=== PATIENT | male | born 1975 | race Hispanic/Latino ===

== ENCOUNTER 2018-05-15 17:02 | Emergency (ER) | payer OTHER ==
[2018-05-15 17:37] VITALS: BP 125/98
--- NOTE | 2018-05-15 17:39 | Emergency Department Report ---
Blank Doc - Documentation Documentation: 43 y o male presents with a work bark stuck in his right index finger happened today while playing with his dog no bleeding PLAN: xray ordered reevalute take out stick if not obstructed tetanus booster antibiotics cipro/clinda
--- NOTE | 2018-05-15 18:37 | XRay Report ---
FINAL REPORT PROCEDURE: XR FINGER(S) 2+V RT TECHNIQUE: Right finger, two views HISTORY: foreign object in finger COMPARISON: No prior studies are available for comparison. FINDINGS: There is a linear 2.5 centimeter foreign body in the volar soft tissues of the distal 2nd finger. No underlying fracture or joint dislocation is seen. IMPRESSION: Foreign body is in the volar soft tissues of the distal 2nd finger, with no osseous involvement ident ified
[2018-05-15] MEDS ORDERED: BOOSTRIX IM ONE ×2 (18:48→18:51)
--- NOTE | 2018-05-15 18:52 | Emergency Department Report ---
HPI - General Chief Complaint: Extremity Injury, Upper Time Seen by Provider: 05/15/18 17:34 - HPI HPI: 43 y o male presents with a work bark stuck in his right index finger happened today while playing with his dog. Patient states that he had stick and was playing fetch with his dog when he accidentally had some of the strands of the bark puncture his in right index finger. Patient states his tetanus is not up-to-date. Patient denies any bleeding at the site. ED Past Medical Hx - Social History Smoking Status: Never Smoker Substance Use Type: Alcohol - Medications Home Medications: Home Medications Medication Instructions Recorded Confirmed Last Taken Type Ciprofloxacin HCl [Ciprofloxacin 500 mg PO BID #14 tablet 05/15/18 Unknown Rx TAB] Clindamycin [Clindamycin CAP] 300 mg PO Q6H #15 capsule 05/15/18 Unknown Rx Ibuprofen [Motrin] 800 mg PO Q8HR #30 tablet 05/15/18 Unknown Rx ED Review of Systems ROS: Stated complaint: SOMETHING STUCK IN FINGER Other details as noted in HPI Comment: All other systems reviewed and negative Constitutional: denies: chills, fever Eyes: denies: eye pain, eye discharge, vision change ENT: denies: ear pain, throat pain Respiratory: denies: cough, shortness of breath, wheezing Cardiovascular: denies: chest pain, palpitations Endocrine: no symptoms reported Gastrointestinal: denies: abdominal pain, nausea, diarrhea Genitourinary: denies: urgency, dysuria Musculoskeletal: denies: back pain, joint swelling, arthralgia Skin: denies: rash, lesions Neurological: denies: headache, weakness, paresthesias Psychiatric: denies: anxiety, depression Hematological/Lymphatic: denies: easy bleeding, easy bruising Physical Exam - Physical Exam Vital Signs: Vital Signs 05/15/18 17:35 Temperature 97.8 F Pulse Rate 83 Respiratory 20 Rate Blood Pressure 125/98 O2 Sat by Pulse 95 Oximetry Physical Exam: GENERAL: Alert and oriented x3, no apparent distress, Normal Gait, atraumatic. HEAD: Head is normocephalic and a-traumatic. EXTREMITIES/MUSCULOSKELETAL: No cyanosis, clubbing, rash, lesions or edema. Full ROM bilaterally. UE Pulses 2+ bilaterally. About 5 cm small wooden stick protruding from right index finger. NEUROLOGIC: The patient is cooperative with no focal neurologic deficits. PSYCHIATRIC: Mood is congruent with affect, denies suicidal or homicidal ideations. SKIN: Warm and dry, No lesions, No ulceration or induration present. ED Course Vital Signs 05/15/18 17:35 Temperature 97.8 F Pulse Rate 83 Respiratory 20 Rate Blood Pressure 125/98 O2 Sat by Pulse 95 Oximetry ED Medical Decision Making - Radiology Data Radiology results: report reviewed, image reviewed FINAL REPORT PROCEDURE: XR FINGER(S) 2+V RT TECHNIQUE: Right finger, two views HISTORY: foreign object in finger COMPARISON: No prior studies are available for comparison. FINDINGS: There is a linear 2.5 centimeter foreign body in the volar soft tissues of the distal 2nd finger. No underlying fracture or joint dislocation is seen. IMPRESSION: Foreign body is in the volar soft tissues of the distal 2nd finger, with no osseous involvement identified Transcribed By: AVINASH Dictated By: ROBERTO RINCON M.D. Electronically Authenticated By: ROBERTO RINCON M.D. Signed Date/Time: 05/15/18 1837 - Medical Decision Making 43-year-old male presented for an object to the index finger and X-ray shows no bony abnormality or serious injuries. Finger was numbed with 2 mL of lidocaine and foreign body was extracted through. Wound was cleaned and sterilely draped. Patient was given antibiotics as well as a tetanus booster in the ED. Discussed follow-up with the primary care physician. he tolerated procedure well. All foreign object was removed from the finger. Critical care attestation.: If time is entered above; I have spent that time in minutes in the direct care of this critically ill patient, excluding procedure time. ED Disposition Clinical Impression: Foreign body in soft tissue, Puncture wound Disposition: [id number] TO HOME OR SELFCARE Is pt being admited?: No Does the pt Need Aspirin: No Condition: Stable Instructions: Soft Tissue Foreign Body (ED), Puncture Wound (ED), Abrasion (ED) Additional Instructions: f/u with your primary care doctor take medications as Prescribed Prescriptions: Ciprofloxacin HCl [Ciprofloxacin TAB] 500 mg PO BID #14 tablet Clindamycin [Clindamycin CAP] 300 mg PO Q6H #15 capsule Ibuprofen [Motrin] 800 mg PO Q8HR #30 tablet Referrals: DERRICK YANG MD [Referring] - 3-5 Days Forms: Work/School Release Form(ED) Time of Disposition: 18:52
== END 2018-05-15 19:12 | disposition home or self-care (01) ==
LOC: ED 17:02
DX: S60.450A Superficial foreign body of right index finger, initial encounter (principal); X58.XXXA Exposure to other specified factors, initial encounter; Y93.89 Activity, other specified; Y92.89 Other specified places as the place of occurrence of the external cause; Y99.8 Other external cause status
CPT/HCPCS: 90471; 90715